=== PATIENT | male | born 1955 | race Caucasian/White ===

== ENCOUNTER 2017-01-29 09:03 | Day surgery (SDC) | payer OTHER, MEDICARE, BC ==
[~2017-01-29 09:03] MED LIST: Metoclopramide 10 MG/2 ML SDV IV PRN; Sodium Chloride 0.9% 1,000 ML IV SCH; Sodium Chloride 0.9% 10 ML Syringe FLUSH PRN
[2017-01-29] MEDS ORDERED: Propofol 1,000 MG/100 ML SDV ONE (11:00)
[2017-01-29] MEDS ORDERED: Propofol 200 MG/20 ML SDV ONE (11:00)
[2017-01-29 14:48] VITALS: BP 133/66
--- NOTE | 2017-01-29 15:06 | OR ---
DATE OF OPERATION: 01/29/2017 PREOPERATIVE DIAGNOSIS: Screening colonoscopy. POSTOPERATIVE DIAGNOSIS: Normal colonoscopy. OPERATION: Screening colonoscopy. COMPLICATIONS: None. DRAINS: None. SPECIMENS: None. ESTIMATED BLOOD LOSS: Zero. ANESTHESIA: General propofol anesthesia. INDICATION: Mr. Ying is a 61-year-old gentleman here for a routine screening colonoscopy. His previous was over 10 years ago. He is currently asymptomatic without a family history. The above-mentioned procedure was explained. The risks, benefits, and complications were explained. The patient understood and agreed and was brought to the operating room. DESCRIPTION OF PROCEDURE: The patient was brought to the operating room, placed in the left lateral decubitus position on the operating room table. Satisfactory general propofol anesthesia was administered. We began by performing a rectal examination which was within normal limits. There was some external skin tags suggestive of previous external hemorrhoids. I then placed the endoscope by finger introduction into the rectum and subsequently advanced this to the level of the cecum. The cecum was identified by the appendiceal orifice as well as the ileocecal valve and cecal strap. Next, careful evaluation of mucosa was performed on withdrawal. There was no evidence of telangiectasias, polyps, neoplastic growths, or diverticula. Retroflexion was performed of the rectum which was within normal limits. The colon was decompressed and the endoscope was withdrawn. The patient tolerated the procedure well. There were no complications. Instrument count was correct. The patient was awoken in the OR and taken to the PACU for recovery. KAMINI /[id number]
== END 2017-01-29 13:00 | disposition home or self-care (01) ==
LOC: LB.SDS 09:03
PROVIDERS: ATTEND Surgery
DX: Z12.11 Encounter for screening for malignant neoplasm of colon (principal); I25.10 Atherosclerotic heart disease of native coronary artery without angina pectoris; E78.00 Pure hypercholesterolemia, unspecified; F32.9 Major depressive disorder, single episode, unspecified; Z95.5 Presence of coronary angioplasty implant and graft; Z96.649 Presence of unspecified artificial hip joint; Z88.2 Allergy status to sulfonamides; F17.210 Nicotine dependence, cigarettes, uncomplicated
CPT/HCPCS: 45378; J2704; J7040; J3490

== ENCOUNTER 2019-12-30 11:34 | Emergency (ER) | payer OTHER, MEDICARE ==
[2019-12-30 12:58] VITALS: BP 127/68; PULSE 58
--- NOTE | 2019-12-30 15:11 | ER ---
HISTORY OF PRESENT ILLNESS: 64-year-old male here with complaints of bruising which is happening with all of his extremities, but he is developing a lump on the lower right leg that he is concerned it could be a hematoma. The patient does not take any blood thinners other than a daily baby aspirin. He denies any obvious injuries to this area, but states he has had some problems with being unsteady. The patient denies any symptoms of feeling sick and has not had any obvious falls or injuries lately. OBJECTIVE: GENERAL APPEARANCE: The patient is awake and alert. No obvious respiratory distress. He has a brace on the right lower leg. VITAL SIGNS: Reviewed. He is afebrile. Blood pressure 127/68, pulse 58, O2 saturation 96%, respirations 16. EXTREMITIES: Examining the left lower leg reveals multiple bruises, but there is a larger one just on the medial side of the mid tibia area that is slightly raised. I believe this is consistent with a hematoma. He has multiple other bruises noted on the right lower leg as well as both arms. The patient only admits to taking a daily baby aspirin for a blood thinner. LUNGS: Clear. SKIN: Warm and dry. LABORATORY DATA AND X-RAY: CBC shows a hemoglobin of 11.9, platelets are at the low end of normal at 178. PT 10.5, INR 1.0. DIAGNOSIS: Multiple bruises with a possible hematoma. TREATMENT PLAN: The patient will stop taking his baby aspirin and we will set him up for an ultrasound of the lower left leg, which will be scheduled for tomorrow and the patient is to follow up with his primary care provider within the next few days. Activity should be as tolerated. MONALISA/MODL /[id number]
== END 2019-12-30 14:14 | disposition home or self-care (01) ==
LOC: LB.ED 11:34
DX: M79.81 Nontraumatic hematoma of soft tissue (principal); Z79.82 Long term (current) use of aspirin
CPT/HCPCS: 36415; 85025; 85610; 99283

== ENCOUNTER 2020-12-13 19:14 | Emergency (ER) | payer OTHER, MEDICARE ==
[2020-12-13 20:15] VITALS: BP 113/64; PULSE 60
[2020-12-13] MEDS ORDERED: Acetaminophen/HYDROcodone 325-5 MG Tab ONE (21:00)
--- NOTE | 2020-12-14 07:18 | PN ---
DATE OF VISIT: 12/13/2020 HISTORY OF PRESENT ILLNESS: A 65-year-old male here with complaints of falling about 3 p.m. He was going into physical therapy in [place] when he was in a bit of a hurry because he was a couple of minutes late. He lost his balance and fell to the sidewalk. He sustained injuries to the left side of the forehead and orthodox area. He states that his neck hurts some. He has pain by the left elbow and his left knee hurts. The patient was seen by an ambulance crew and he refused to go in for evaluation. They wrapped his head and left arm and he went home. After being home for a couple of hours, he decided he should come in for evaluation, so he is here with his . He denies any loss of consciousness when he fell. He states that he has fairly significant pain involving the head and arm. The neck is just slightly painful and the knee pain, he states, is moderate. The patient has not been nauseated or vomiting. He denies any blurred vision, shortness of breath, or chest pain. The patient is not on any blood thinners. OBJECTIVE: GENERAL APPEARANCE: The patient is awake and alert. He is pleasant. He is telling jokes. VITAL SIGNS: Reviewed. Blood pressure 113/64, pulse 79. HEENT: Examining the patient reveals he has bruising all around the left eye with moderate swelling. His head is wrapped with a dressing. I removed the dressing with nursing staff and there is an abrasion injury about 3.5 cm in diameter that is superficial. There is a small hematoma centrally located within the abrasion. There is just a small amount of blood seeping from the abrasion at this time. Pupils equal, round, and reactive to light. EOMs are grossly intact. NECK: Reveals a well-healed scar on the posterior side. There is no bruising or discoloration of the neck, and there is really no pain with light palpation of the paraspinal muscles or both sides of the neck. The patient has about 50% of what I would call normal lateral rotation with his neck. EXTREMITIES: Examining the left elbow area reveals a skin tear just distal to the elbow on the lateral side that is about 2 x 3 cm in size. Remnants of the debrided skin are present around the distal edge and are devitalized. There is minimal seepage of blood from this wound as well. The patient has full flexion and extension capability without any difficulty of the left elbow, wrist, and the shoulder. Examining the left knee reveals the skin is intact. There is an anterior well- healed scar from a previous knee replacement. There is no swelling noted, and mild pain on both sides of the knee as well as the anterior aspect. LABORATORY DATA AND X-RAY: Labs today include a CBC which is normal. Hemoglobin is over 10. Comprehensive metabolic panel reveals a slightly low sodium level and just a subtle abnormal changes with the potassium and a BUN at 1.34. X-ray of the left knee is obtained. I do not see any acute bony abnormality. CT of the head, I took an initial look. I do not see any acute internal problems. I can see this small hematoma external to the skull, and we will wait for radiologist's report for further information involving the head CT and the neck CT. DIAGNOSES: Fall with abrasion injury to the left orthodox with a hematoma, skin tear to the left arm, and contusion injury to the left knee. TREATMENT PLAN: The patient and his do not want to wait for the radiologist report involving the CT scans. They say that they live about 2 miles away. I advised him that normally we would have them wait, but it is up to them. We will certainly call him with the imaging report as soon as possible. The patient wants to go home. I will send him home with hydrocodone tablets to use as needed and he can use Aleve in between b.i.d. for the next 2 or 3 days. He is to change the dressings once a day. Nursing staff applied antibiotic ointment topically to the skin tear and the abrasion injury to the orthodox area, covered it with Telfa and Say. He is to change the dressings once a day more often if soiled and monitor for any sign of infection. Both of the wounds were cleansed by EMS initially and then by nursing staff here as well. I do want the patient to follow up in the clinic in a couple of days for a recheck. He agrees to do this and has no further questions. Addendum: Pt was called with the CT report. It did show broken screws in the hardware at the base of the neck. He was not having much pain there, so I'm not sure this is a new finding. He is instructed to contact his PCP or surgeon to further review. CRS/MODL /[id number] DENA
--- NOTE | 2020-12-14 07:27 | CT ---
Date of Service: 12/13/20 Clinical Data: Fall UNENHANCED BRAIN CT: Multislice acquisition through the brain without IV contrast was performed. No priors. There is mild atrophy. There are periventricular lucencies bilaterally consistent with small vessel ischemic change. No masses or mass effect. No intracranial hemorrhage. No evidence of acute or subacute infarct. There is soft tissue swelling of the scalp in the left frontal region. There is also preseptal soft tissue swelling on the left. No underlying fractures. IMPRESSION: No acute intracranial abnormalities. [id number] [facility]
--- NOTE | 2020-12-14 07:30 | CR ---
Date of Service: 12/13/20 Clinical Data: Fall. LEFT KNEE: Patient is status post left total knee arthroplasty. The prosthesis appears intact. No acute abnormalities. No lytic or blastic bone lesions. No joint effusion. [id number] [facility]TD[facility]
--- NOTE | 2020-12-14 07:48 | CT ---
Date of Service: 12/13/20 Clinical Data: Fall CERVICAL SPINE CT: Multislice axial acquisition from the base of the skull to T3 was performed. Axial images and sagittal and coronal reformations are reviewed. There are laminectomy defects at the C3 and C4 levels. There is internal fixation of C2, C4, C5, C6, and T1 with posterior metal rods and pedicles screws. The patient has C6-7 diskectomy and fusion. There is internal fixation of C6 and C7 with anterior metal plate and multiple screws. There is mild reversal of the normal cervical lordosis. This is most likely positional or due to muscle spasm. There is degenerative disk disease throughout the cervical spine. There is facet joint hypertrophy throughout the cervical spine. There are degenerative changes involving the atlantoaxial articulation. The pedicle screws at the T1 level are fractured bilaterally. I do not see evidence of an acute osseous fracture or dislocation. The soft tissues are unremarkable. The visualized lung apices are clear. [id number] [facility]
== END 2020-12-13 21:08 | disposition home or self-care (01) ==
LOC: LB.ED 19:14
DX: S41.112A Laceration without foreign body of left upper arm, initial encounter (principal); S80.02XA Contusion of left knee, initial encounter; S00.83XA Contusion of other part of head, initial encounter; W18.30XA Fall on same level, unspecified, initial encounter; Y92.480 Sidewalk as the place of occurrence of the external cause
CPT/HCPCS: 36415; 70450; 72125; 73562-LT; 80053; 85025; 99284-25; A9270-GY

== ENCOUNTER 2021-09-30 16:00 | Emergency (ER) | payer OTHER, MEDICARE ==
[2021-09-30 16:41] VITALS: BP 118/79; PULSE 88
[2021-09-30] MEDS ORDERED: Sulfamethoxazole/Trimethoprim 800-160 MG Tab ONE (16:45)
== END 2021-09-30 17:00 | disposition home or self-care (01) ==
LOC: LB.ED 16:00
DX: S81.812A Laceration without foreign body, left lower leg, initial encounter (principal); I25.10 Atherosclerotic heart disease of native coronary artery without angina pectoris; E78.00 Pure hypercholesterolemia, unspecified; Z95.5 Presence of coronary angioplasty implant and graft; Z88.2 Allergy status to sulfonamides; Z79.899 Other long term (current) drug therapy; Z86.73 Personal history of transient ischemic attack (TIA), and cerebral infarction without residual deficits
CPT/HCPCS: 99282; A9270; 99281

== ENCOUNTER 2023-02-05 16:51 | Emergency (ER) | payer MEDICARE ==
[2023-02-05 20:01] VITALS: BP 126/58; PULSE 94
== END 2023-02-05 18:45 | disposition home or self-care (01) ==
LOC: LB.ED 16:51
DX: Z48.03 Encounter for change or removal of drains (principal); I25.10 Atherosclerotic heart disease of native coronary artery without angina pectoris; E78.00 Pure hypercholesterolemia, unspecified; Z88.2 Allergy status to sulfonamides; Z79.899 Other long term (current) drug therapy
CPT/HCPCS: 99283